=== PATIENT | female | born 1995 | race African-American/Black ===

== ENCOUNTER 2024-04-20 14:00 | Emergency (ER) | payer BC, SELFPAY ==
--- NOTE | ~2024-04-20 | XR_ITS ---
EXAMINATION: XR chest 2V DATE: 04/20/2024 14:57 INDICATION: Left chest pain. TECHNIQUE: Frontal and lateral views of the chest were obtained. COMPARISON: None. FINDINGS: There is no pneumonia, pleural effusion, or pneumothorax. The heart size is normal. IMPRESSION: 1. No acute cardiopulmonary disease. Reviewed, dictated and finalized at location A.
[2024-04-20 14:02] VITALS: BP 140/87; PULSE 73; RESP 16; TEMP 36.4; O2SAT 100
--- NOTE | 2024-04-20 14:16 | ECG_ITS ---
Test Date: 2024-04-20 14:28:24 Measurements Intervals [place] Rate: 63 P: -7 NH: 177 QRS: 65 QRSD: 77 T: 42 QT: 381 QTc: 392 Interpretive Statements SINUS RHYTHM NORMAL ECG No previous ECG available for comparison Electronically Signed On 04-20-2024 15:01:10 CDT by Cedric Calix D.O.
[2024-04-20] MEDS: KETOROLAC 30 MG/ML VIAL (*BKC) IM (14:52)
[2024-04-20 15:39] LABS: Troponin I < 0.012 ng/mL (0.000-0.034)
--- NOTE | 2024-04-20 15:48 | ED.BACK ---
HPI - Back Pain/Injury General Chief Complaint: Back Pain/Injury Stated Complaint: back pain Time Seen by Provider: 04/20/24 14:10 Source: patient Mode of arrival: ambulatory Limitations: no limitations History of Present Illness HPI Narrative: This is a 28-year-old female, with no significant past medical history, presents emergency department complaining of right-sided back pain for approximately the past 5 hours. 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 She developed cramping and sharp mid back pain, worsened with arm movement. She also complains of left-sided chest pain, described as sharp and sore for the past week. She denies shortness of breath, loss of consciousness, palpitations, bleeding has no other complaints at this time. Related Data Allergies Allergy/AdvReac Type Severity Reaction Status Date / Time No Known Allergies Allergy Verified 04/20/24 14:07 Review of Systems Review of Systems: Last menstrual period 3 days ago All systems reviewed & are unremarkable except as noted in HPI and below PMFSH Past Medical History Medical History No significant past medical history Surgical History Surgical History No significant past surgical history Social History Social History Smoking status: Never smoker Alcohol intake: never Substance use: never Exam Narrative: GENERAL: Well-developed, well-nourished, and in no acute distress. HEAD: Normocephalic, atraumatic. EYES: PERRLA and EOMI. CHEST: Clear to auscultation. No respiratory distress. No wheezes rales or rhonchi. No tender palpation over the anterior left chest wall at the lateral border pectoralis major HEART: Regular rate and rhythm. No murmur heard. Normal peripheral pulses. ABDOMEN: Soft, nontender, nondistended, normal active bowel sounds. BACK: Tender palpation at the medial border of the right scapula over the rhomboid. There is no noted mass, induration or erythema. EXTREMITIES: Normal range of motion. No edema. SKIN: Warm, dry, no rash. NEURO: Alert and oriented x3. No focal deficit. Moving all 4 limbs spontaneously PSYCH: Normal mood and affect. Course Course Emergency Course: 15:52 - Chest x-ray unremarkable. EKG not concerning for ischemia. Troponin negative. I suspect the patient's chest and back pain are related to musculoskeletal strain. Will discharge with recommendation lidocaine patches, NSAIDs and rest. I discussed the findings and recommendations with the patient. Discussed return and emergency precautions including signs/symptoms of ACS and respiratory distress. The patient voiced understanding and agreement with the plan. All questions answered to her satisfaction. Vital Signs Vital signs: Vital Signs Temperature 97.5 F L 04/20/24 14:02 Pulse Rate 73 04/20/24 14:02 Respiratory Rate 16 04/20/24 14:02 Blood Pressure 140/87 04/20/24 14:02 Pulse Oximetry 100 04/20/24 14:02 Oxygen Delivery Room Air 04/20/24 14:02 Temperature 97.5 F L 04/20/24 14:02 Pulse Rate 68 04/20/24 16:21 Respiratory Rate 16 04/20/24 16:21 Blood Pressure 138/72 04/20/24 16:21 Pulse Oximetry 100 04/20/24 16:21 Oxygen Delivery Room Air 04/20/24 14:02 MDM - Back Pain/Injury MDM Narrative Medical decision making narrative: Plan: Labs, imaging, EKG, pain control, reassess Differential Diagnosis Differential diagnosis: Likely other (Rhomboid pain, ACS, costochondritis, pectoral strain, other) Lab Data Labs: Lab Results 04/20/24 Range/Units 15:00 Troponin I < 0.012 (0.000-0.034) ng/mL ECG Data EKG #1: Attestation: I personally reviewed and interpreted this ECG as follows: ECG completion date: 04/20/24 ECG completion time: 14:28 Prior ECG tracings: not availa
[2024-04-20 16:21] VITALS: BP 138/72; PULSE 68; RESP 16; O2SAT 100
== END 2024-04-20 16:23 | disposition home or self-care (01) ==
PROVIDERS: Emergency Provider Preventive Medicine Aerospace Medicine
DX: S29.012A Strain of muscle and tendon of back wall of thorax, initial encounter (principal); S29.011A Strain of muscle and tendon of front wall of thorax, initial encounter; X50.0XXA Overexertion from strenuous movement or load, initial encounter
CPT/HCPCS: 36415; 71046; 84484; 93005; 96372; 99284; J1885